=== PATIENT | female | born 1970 | race Caucasian/White ===

== ENCOUNTER → 2021-02-28 | Outpatient (CLI) | payer OTHER ==
[2021-02-28 13:15] LABS: African American GFR (CKD) >90 (>60 ml/min/1.73 sqM); Blood Urea Nitrogen 14 mg/dL (7-17); Non-African American GFR(CKD) >90 (>60 ml/min/1.73 sqM)
--- NOTE | 2021-03-02 22:17 | CT ---
EXAMINATION TYPE: CT urogram wo/w con DATE OF EXAM: 02/28/2021 COMPARISON: 06/07/2015 INDICATION: Hematuria. Bilateral flank pain. DLP: 3192.3 mGycm, Automated exposure control for dose reduction was used. CONTRAST: 100 mL of Isovue M300. Study performed TECHNIQUE: Axial images were obtained from above the diaphragm to the pubic rami in the axial plane a t 5 mm thick sections. Reconstructed images are reviewed on the computer in the coronal plane. FINDINGS: Limited CT sections are obtained the lung bases. The lung bases are clear. 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 Liver: Normal Spleen: Normal Pancreas: Normal Adrenal glands: The adrenal glands are normal. Gallbladder: Not identified. Kidneys: No masses are evident. No hydronephrosis is evident Right pelvic cysts are present on the le ft. Delayed images were obtained through the kidneys, which remain unremarkable. On precontrast imag ing there is a cyst 0.8 cm nonobstructing cortical left renal calcification superior pole. No hydrour eter is evident. Ureters follow a normal caliber course and contour to the urinary bladder. Bilateral ureteral jets are evident. Urinary bladder as visualized appears normal. Three-D reconstructed images performed by the technologist to perform a separate computer. Renal hynu soto infundibula and renal pelves appear normal. Ureters on sequential images appear normal. No suspic ious intraluminal or extramural abnormalities are evident. Note is made of a retrovascular right uret er. Aorta: Vascular calcification is within the aorta. Inferior vena cava: Normal. CT PELVIS: Loops of bowel within the abdomen and pelvis are normal. There are loops of bowel which are incom pletely distended or lack oral contrast limiting their evaluation. Appendix: Not visualized. No suspicious dilated tubular structure or inflammatory changes are evident . Urinary bladder: Normal. Genitourinary structures: Osseous structures: No suspicious lytic or sclerotic lesions. IMPRESSIONS: 1. No suspicious renal abnormality. 2. Cortical renal cyst without obstruction. 3. Left peripelvic cysts
== END | disposition home or self-care (01) ==
LOC: RADCTMAIN 12:26
PROVIDERS: ATTEND Urology
DX: N28.1 Cyst of kidney, acquired (principal)
CPT/HCPCS: 82565; 84520; 74178; 36415; 74400; Q9967